=== PATIENT | male | born 1965 | race Caucasian/White ===

== ENCOUNTER 2022-02-11 13:35 | Observation (INO) | payer SELFPAY ==
[2022-02-11] VITALS (39 sets, daily range): BP systolic 107–155; BP diastolic 65–109; PULSE 62–96; RESP 11–20; TEMP 36.3–37.1; O2SAT 92–100; BMI 22.2
--- NOTE | ~2022-02-11 | XR_ITS ---
EXAMINATION: XR chest 1V portable DATE: 02/11/2022 14:16 INDICATION: Chest pain TECHNIQUE: frontal view of the chest was obtained. COMPARISON: None FINDINGS: The lungs are clear with no focal airspace opacities, pulmonary edema, pleural effusion or pneumothor ax. The cardiomediastinal silhouette is normal. Visualized bones and soft tissues are unremarkable. IMPRESSION: 1. No acute cardiopulmonary disease. Reviewed, dictated and finalized at location A.
--- NOTE | ~2022-02-11 | NM_ITS ---
EXAMINATION: NM stress w perf spect multi DATE: 02/12/2022 13:48 INDICATION: Chest pain. TECHNIQUE: Rest images were obtained following intravenous administration of 9.5 mCi Tc99m tetrofosmi n (EndoGastric Solutions). The patient performed an exercise activity. At peak exercise, 27.8 mCi Tc99m tetrofosmin (Myoview) was administered intravenously, and stress images were obtained. Data was reconstructed in to short axis and horizontal and vertical long axis SPECT images. Gated SPECT images were also obtain ed. COMPARISON: Chest CT 02/11/2022 FINDINGS: Sensitivity and specificity in the inferior wall are decreased by relatively high activity below the diaphragm. There is no definite reversible or fixed perfusion abnormality to suggest ischem ia or infarction. There is no segmental wall motion abnormality. Left ventricular ejection fraction measures > 70%. IMPRESSION: 1. No definite ischemia or infarct. 2. Normal left ventricular ejection fraction measuring >70%. Reviewed, dictated and finalized at location A.
--- NOTE | ~2022-02-11 | CT_ITS ---
EXAMINATION: CTA chest PE protocol DATE: 02/11/2022 18:31 INDICATION: CHEST PAIN TECHNIQUE: Computed tomography angiography (CTA) of the chest was performed with 100 mL Omnipaque-350 intravenous contrast timed to evaluate the pulmonary arteries. Coronal maximum intensity projection 3D-reconstructions were created by the technologist. The dose-length product (DLP) was 341.84 mGy-cm. Automated exposure control and iterative reconstruction technique were employed. COMPARISON: None. FINDINGS: Lung parenchyma and airways: Clear. Pleura: Unremarkable. Thoracic inlet, axillae and chest wall: Unremarkable. Thoracic aorta: Mild arch calcification. A sending aortic ectasia up to 4.1 cm. Mediastinum: Normal. Heart and pericardium: Normal. Coronary artery calcifications: Mild. Upper abdomen: No significant finding. Bones: No acute osseous finding. Pulmonary arteries: Study quality: Adequate. No pulmonary emboli detected. IMPRESSION: No CT evidence of acute pulmonary embolus. Reviewed, dictated and finalized at location K.
--- NOTE | 2022-02-11 13:36 | ECG_ITS ---
Measurements Intervals [place] Rate: 75 P: 76 UT: 157 QRS: 71 QRSD: 90 T: 65 QT: 372 QTc: 416 Interpretive Statements SINUS RHYTHM DIFFUSE ST SEGMENT ELEVATION, CONSIDER EARLY REPOLARIZATION [ST ELEVATION WITH NORMALLY INFLECTED T WAVE], PERICARDITIS ABNORMAL ECG NO PREVIOUS ECG AVAILABLE FOR COMPARISON Electronically Signed On 02-11-2022 13:59:54 CDT by Ponce Jimenes M.D.
--- NOTE | 2022-02-11 13:50 | ED.CHESTPAIN ---
HPI - Chest Pain General Chief Complaint: Chest Pain Stated Complaint: Chest pressure Time Seen by Provider: 02/11/22 13:50 Source: patient Limitations: no limitations History of Present Illness HPI narrative: 56 years old white male presented to the ED with chest started at 4 AM tightness, squeezing 8 out of 10,.. 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 He denies any shortness of breath or radiation of pain or having similar symptoms. Patient is adopted, does not take medicine at home, actively tobacco use. He denies any fever, chills, nausea, vomiting or similar symptoms. Related Data Home Medications Medication Instructions Recorded Confirmed No Home Medications 02/11/22 02/11/22 Allergies Allergy/AdvReac Type Severity Reaction Status Date / Time No Known Allergies Allergy Verified 02/11/22 13:43 Review of Systems Review of Systems: All systems reviewed & are unremarkable except as noted in HPI and below PMFSH Past Medical History Medical History Tobacco abuse Surgical History Surgical History No pertinent past surgical history Family History Family History Unknown Family history not known due to adoption Social History Social History Social History: The patient is and has 2 children. 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 He denies any alcohol, marijuana, or illicit drugs. His is the durable power deputy prosecuting attorney for healthcare. Code status full code Smoking packs per day: 1 Smoking cigarettes per day: 20.0 Smoking status: Current every day smoker Alcohol intake: current Substance use: never Living arrangements: with family Occupation/Education: occupation Spiritual care concerns: No Has the Lack of Transportation Kept You From Medical Appointments or From Getting Medications?: No Within the Past 12 Months, Were You Worried Whether Your Food Would Run Out Before You Got Money to Buy More?: Never True What is Your Housing Situation Today?: I Have Housing Are You Worried That in the Next 2 Months, You May Not Have Your Own Housing to Live In?: No Do You Have Trouble Paying Your Heating Or Electricity Bill?: No Do You Have Trouble Paying For Medicines?: No Are You Currently Unemployed and Looking for Work?: No Highest Level of Education Completed: Associate Degree Do You Have Trouble With Childcare or the Care of a Family Member?: No Exam Narrative: General appearance: Well-developed, well-nourished Skin: Normal color Head: Normocephalic, nontraumatic Eyes: Clear conjunctiva ENT: Oropharynx normal, ears normal, nose normal Neck: Supple, nontender Chest and respiratory: Airway patent, no respiratory distress, no accessory muscle use Heart: Regular rate/rhythm Abdomen: Soft, nontender, no organomegaly, quiet bowel sounds Vascular: Normal peripheral pulses, normal capillary refill. Musculoskeletal: Normal range of motion, nontender back Neurologic: Alert and oriented ?3, ACID ADJUSTER is normal as tested, no gross motor deficit Course Consultations Consultation #1: Dr. Mancera came to the emergency room and stated that the EKG did not show STEMI and no cardiac catheterization at this time Time: 14:08 Vital Signs Vital signs: Vital Signs Temperature 37.1 C 02/11/22 13:39 Pulse Rate 75 02/11/22 13:39 Respiratory Rate 20 02/11/22 13:39 Blood Pressure 155/79 H 02/11/22 13:39 Pulse Oxime
[2022-02-11] MEDS: ASPIRIN 81 MG CHEWABLE TABLET 324 MG PO (14:35)
[2022-02-11] MEDS: NITROGLYCERIN SL 0.4 MG TABLET SUBLINGUAL (14:35)
[2022-02-11 14:38] LABS: Basophils Absolute Auto 0.1 K/mm3 (0.0-0.1); Basophils Percent Auto 0.5 % (0.2-1.2); Eosinophils Absolute Auto 0.1 K/mm3 (0-0.3); Eosinophils Percent Auto 0.8 % (0-4.4); Hematocrit 44.3 % (42.0-52.0); Hemoglobin 14.9 g/dL (14.0-18.0); Immature Granulocyte Absolute 0.03 K/mm3 (0.00-0.031); Immature Granulocyte Percent A 0.3 % (0-0.5); Lymphocytes Absolute Auto 0.94 K/mm3 (0.9-3.2); Lymphocytes Percent Auto 9.9 % (18.3-44.2); Mean Corpuscular HGB Conc 33.6 g/dl (32-36); Mean Corpuscular Hemoglobin 33.2 pg (26-34); Mean Corpuscular Volume 98.7 fl (80-100); Mean Platelet Volume 11.2 fl (7.4-10.4); Monocytes Absolute Auto 0.6 K/mm3 (0.1-0.6); Monocytes Percent Auto 6.7 % (2.6-8.5); Neutrophils Absolute Auto 7.8 K/mm3 (1.3-6.7); Neutrophils Percent Auto 81.8 % (45.5-73.1); Platelet Count Result 199 k/mm3 (150-375); Red Blood Count 4.49 M/mm3 (4.6-6.20); Red Cell Distribution Width 12.8 % (11.5-14.5); White Blood Count 9.5 K/mm3 (4.5-10.0)
[2022-02-11 14:50] LABS: Alanine Aminotransferase 32 U/L (6-50); Albumin Level 4.7 g/dL (3.5-5.1); Alkaline Phosphatase 60 U/L (38-126); Anion Gap 13 mmol/L (8-16); Aspartate Amino Transferase 54 U/L (17-59); Bilirubin,Total 0.6 mg/dL (0.2-1.3); Blood Urea Nitrogen 11 mg/dL (9-20); Carbon Dioxide 23 mmol/L (22-30); Chloride 105 mmol/L (98-107); Estimated CRCL calculation 82 ml/min; Estimated Glomerular Filt Rate > 60; Glucose 112 mg/dL (65-110); Lipase 59 U/L (23-300); Sodium 141 mmol/L (137-145)
[2022-02-11 14:51] LABS: INR 1.1; Prothrombin Time 13.4 Seconds (11.1-14.7)
[2022-02-11 14:52] LABS: Partial Thromboplastin Time 29.7 SECONDS (22.3-36.8)
[2022-02-11 14:59] LABS: NT Pro B Type Natriuretic Pept 60 pg/mL (5-100)
[2022-02-11 15:00] LABS: D Dimer 0.37 ug/mL (<0.48)
[2022-02-11 15:02] LABS: Troponin I < 0.012 ng/mL (0.000-0.034)
--- NOTE | 2022-02-11 15:44 | PM.IMHP ---
H&P: HPI History of Present Illness Date/Time: 02/11/22 15:44 Chief Complaint: Chest pain Narrative: This is a 56-year-old male patient who has no prior history of any medical problems. The patient is a electric truck driver and heavy smoker. The patient stated that he was resting this morning at 4:00 a.m. and started to have some tightness in his chest that was squeezing 8/10. The patient stated that he was not short of breath and did not radiate down his arms and he did not become diaphoretic are nauseated. The patient started driving his truck in the pain got worse and was 5/10. The patient denied any fever chills or any cough. The patient then fold his truck over at a truck stop and called the ambulance. Initially a STEMI was called and cardiology came to the emergency room to see the patient. The patient stated that he took goodies that her equivalent to aspirin. The patient was also given nitro and aspirin in the emergency room. EKG was read as sinus rhythm diffuse ST segment elevation consider early repolarization, ST elevation with normally inflicted T-waves, pericarditis, abnormal EKG. First troponin is negative. COVID is negative. Chest x-ray was read as no acute cardiopulmonary disease. D-dimer was negative. The patient is being admitted for observation status on the date of service of 02/11/2022. Review of Systems Review of Systems: See HPI All systems reviewed & are unremarkable except as noted in HPI and below Constitutional: Constitutional: Reports as per HPI and Reports no additional constitutional complaints Eyes: Eyes: Reports as per HPI and Reports no additional eye complaints ENT: Reports system reviewed and no additional complaints, except as documented and Reports Normal hearing present Cardiovascular: Cardiovascular: Reports no additional cardiovascular complaints Respiratory: Respiratory: Reports no additional respiratory complaints and Reports no additional respiratory complaints Gastrointestinal: Gastrointestinal: Reports as per HPI and Reports no additional gastrointestinal complaints Musculoskeletal: Musculoskeletal: Reports no additional musculoskeletal complaints Integumentary/Breasts: Skin/Breast: Reports system reviewed and no additional complaints, except as docu and Reports as per HPI Neurologic: Reports system reviewed and no additional complaints, except as documented, Reports as per HPI and Reports Normal hearing present Psychiatric: Psychiatric: Reports no additional psychiatric complaints and Reports as per HPI Endocrine: Endocrine: Reports no additional endocrine complaints Hematologic/Lymphatic: Hematologic/Lymphatic: Reports no additional hematologic/lymphatic complaints Allergic/Immunologic: Allergic/Immunologic: Reports no additional allergic/immunologic complaints PMFSH Past Medical History Medical History (Updated 02/11/22 @ 18:14 by Lorrie Spangler NP) Tobacco abuse Surgical History Surgical History (Updated 02/11/22 @ 17:29 by Lorrie Spangler NP) No pertinent past surgical history Family History Family History (Updated 02/11/22 @ 17:30 by Lorrie Spangler NP) Unknown Family history not known due to adoption Social History Social History (Updated 02/11/22 @ 17:30 by Lorrie Spangler NP) Social History: The patient is and has 2 children. 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 He denies any alcohol, marijuana, or illicit drugs. His is the durable power neurology director for healthcare. Code status full code Smoking status: Current every day smoker Substance use: never Living arrangements: with family Occupation/Education: occupation Meds Home Medications and Allergies Allergies Allergy/AdvReac Type Severity Reaction Status Date / Time No Known Allergies Allergy Verified 02/11/22 13:43 Vital Signs Vital Signs - 24 hr 02/11/22 13:39 02/11/22 13:57 02/11/22 13:50 Temperature 37.1 C Pulse Rate 75 85 96 Respiratory Rate
[2022-02-11 17:05] LABS: SARS-CoV-2 RNA PCR Negative
[2022-02-11 17:51] LABS: Troponin I < 0.012 ng/mL (0.000-0.034)
--- NOTE | 2022-02-11 20:07 | ADMGEN ---
This patient, Gustavo Rust, was admitted to IMU Room 206-02 at 2006. Patient/family oriented to hospital policies and general routines including ID bracelet, bed and alarms, visiting hours, pain management, procedures, bathroom and other care routines, personal items, smoking policy, room service/diet, and visiting hours. Information on how to activate the Rapid Response Team has been discussed. Patient/Family are encouraged to report perceived risks to care and to ask questions if they do not understand what they are told or what they should do.
[2022-02-11 20:58] LABS: Troponin I < 0.012 ng/mL (0.000-0.034)
[2022-02-12] VITALS (7 sets, daily range): BP systolic 94–113; BP diastolic 61–73; PULSE 64–76; RESP 16–20; TEMP 36.6–36.7; O2SAT 96–100
--- NOTE | 2022-02-12 | ECHO_ITS ---
Patient Info Name: Gustavo Rust Age: 56 years : 1965 Gender: Male Ht: 69 in Wt: 169 lbs BSA: 1.94 m2 HR: 66 bpm BP: 94 / 61 mmHg Heart Rhythm: Sinus Rhythm Technical Quality: Fair Exam Date: 02/12/2022 10:33 AM Exam Location: [facility] Pulmonary Exam Room: [facility] Patient Status: Inpatient Admit Date: 02/11/2022 Staff Ordering Physician: Lorrie Spangler NP Ventilated Rib Fitter: Eunice Mejia RDCS Attending Provider: Timothy hCen MD Referring Physician: Crys MCGUIRE; Exam Type: CA echo doppler color flow Study Info Indications - chest pain Complete two-dimensional, color flow and Doppler transthoracic echocardiogram is performed. Summary 1. Complete two-dimensional, color flow and Doppler transthoracic echocardiogram is performed. 2. Left ventricular chamber dimension is normal. 3. Left ventricular systolic function is normal, estimated at 55-60%. 4. There is no increased left ventricular wall thickness. 5. The left ventricular diastolic function is normal. 6. Right ventricular chamber dimension is mildly enlarged. 7. Right atrial chamber dimension is mildly enlarged. 8. There is mild tricuspid valve regurgitation. 9. There is mild pulmonic regurgitation. Left Ventricle Left ventricular chamber dimension is normal. Left ventricular systolic function is normal, estimated at 55-60%. There is no increased left ventricular wall thickness. The left ventricular diastolic function is normal. Right Ventricle Right ventricular chamber dimension is mildly enlarged. Right ventricular systolic function is normal. Left Atria Left atrial chamber dimension is normal. Right Atria Right atrial chamber dimension is mildly enlarged. Atrial Septum Intact interatrial septum visualized by color flow imaging. Aortic Valve The aortic valve is trileaflet. There is mild aortic valve sclerosis. There is no aortic valve stenosis. There is trace aortic valve regurgitation. Pulmonic Valve The pulmonic valve is normal. There is no pulmonic valve stenosis. There is mild pulmonic regurgitation. Mitral Valve The mitral valve has thickened leaflets. There is no mitral valve stenosis. There is trace mitral valve regurgitation. Tricuspid Valve The tricuspid valve leaflets are normal. There is no significant tricuspid valve stenosis. There is mild tricuspid valve regurgitation. No pulmonary hypertension, estimated pulmonary arterial systolic pressure is 33 mmHg. Pericardium/Pleural The pericardium appears normal. Inferior Vena Cava Normal inferior vena cava with >50% collapse upon inspiration consistent with normal right atrial pressure, 10 mmHg. Aorta The aortic root size at the sinus of Valsalva is normal. Left Ventricular Outflow Tract Name Value Normal LVOT 2D LVOT Diameter 2.0 cm LVOT Doppler LVOT Peak Gradient 7 mmHg LVOT Mean Gradient 4 mmHg LVOT VTI 26 cm LVOT VTI/AV VTI Ratio 1.2 LVOT Stroke Volume 78 m
--- NOTE | 2022-02-12 | EST_ITS ---
Patient Info Name: Gustavo Rust Age: 56 years : 1965 Gender: Male Ht: 69 in Wt: 169 lbs BSA: 1.94 m2 HR: 66 bpm BP: 120 / 73 mmHg Heart Rhythm: Sinus Rhythm Exam Date: 02/12/2022 12:38 PM Exam Location: [facility] Stress Patient Status: Inpatient Admit Date: 02/11/2022 Staff Ordering Physician: Lorrie Spangler NP Attending Provider: Timothy Chen MD Exercise Technologist: Camelia Howell CT Nurse: SELMA LIN Exam Type: CA stress test treadmill w NM Study Info Indications R07.1 - Chest pain on breathing A nuclear stress test was performed. Summary 1. Please correlate with nuclear medicine images, reported separately. 2. No abnormal ST-T wave changes with exercise. Protocol: [facility] ECG Details Stage: REST Duration (min): 1 min : 8 sec Speed (mph): 0.0 Grade (%): 0 HR (bpm): 66 SBP (mmHg): 120 DBP (mmHg): 73 METS: --- Stage: REST Duration (min): 7 min : 51 sec Speed (mph): 0.0 Grade (%): 0 HR (bpm): 83 SBP (mmHg): 120 DBP (mmHg): 73 METS: --- Stage: STAGE 1 Duration (min): 1 min : 0 sec Speed (mph): 1.7 Grade (%): 10 HR (bpm): 93 SBP (mmHg): 120 DBP (mmHg): 73 METS: --- Stage: STAGE 1 Duration (min): 2 min : 0 sec Speed (mph): 1.7 Grade (%): 10 HR (bpm): 102 SBP (mmHg): 120 DBP (mmHg): 73 METS: --- Stage: STAGE 1 Duration (min): 3 min : 0 sec Speed (mph): 1.7 Grade (%): 10 HR (bpm): 104 SBP (mmHg): 133 DBP (mmHg): 79 METS: --- Stage: STAGE 2 Duration (min): 1 min : 0 sec Speed (mph): 2.5 Grade (%): 12 HR (bpm): 108 SBP (mmHg): 133 DBP (mmHg): 79 METS: --- Stage: STAGE 2 Duration (min): 2 min : 0 sec Speed (mph): 2.5 Grade (%): 12 HR (bpm): 113 SBP (mmHg): 173 DBP (mmHg): 67 METS: --- Stage: STAGE 2 Duration (min): 3 min : 0 sec Speed (mph): 2.5 Grade (%): 12 HR (bpm): 110 SBP (mmHg): 173 DBP (mmHg): 67 METS: --- Stage: STAGE 3 Duration (min): 1 min : 0 sec Speed (mph): 3.4 Grade (%): 14 HR (bpm): 124 SBP (mmHg): 175 DBP (mmHg): 67 METS: --- Stage: STAGE 3 Duration (min): 2 min : 0 sec Speed (mph): 3.4 Grade (%): 14 HR (bpm): 124 SBP (mmHg): 175 DBP (mmHg): 67 METS: --- Stage: STAGE 3 Duration (min): 3 min : 0 sec Speed (mph): 3.4 Grade (%): 14 HR (bpm): 131 SBP (mmHg): 146 DBP (mmHg): 63 METS: --- Stage: STAGE 4 Duration (min): 1 min : 0 sec Speed (mph): 4.2 Grade (%): 16 HR (bpm): 139 SBP (mmHg): 146 DBP (mmHg): 63 METS: --- Stage: STAGE 4 Duration (min): 2 min : 0 sec Speed (mph): 4.2 Grade (%): 16 HR (bpm): 147 SBP (mmHg): 126 DBP (mmHg): 45 METS: --- Stage: STAGE
[2022-02-12 05:13] LABS: Basophils Absolute Auto 0.1 K/mm3 (0.0-0.1); Basophils Percent Auto 0.9 % (0.2-1.2); Eosinophils Absolute Auto 0.3 K/mm3 (0-0.3); Eosinophils Percent Auto 3.6 % (0-4.4); Hemoglobin 12.9 g/dL (14.0-18.0); Immature Granulocyte Absolute 0.01 K/mm3 (0.00-0.031); Immature Granulocyte Percent A 0.1 % (0-0.5); Lymphocytes Percent Auto 27.3 % (18.3-44.2); Mean Corpuscular HGB Conc 33.9 g/dl (32-36); Mean Corpuscular Hemoglobin 32.8 pg (26-34); Mean Corpuscular Volume 96.7 fl (80-100); Mean Platelet Volume 11.1 fl (7.4-10.4); Monocytes Absolute Auto 0.7 K/mm3 (0.1-0.6); Monocytes Percent Auto 9.6 % (2.6-8.5); Neutrophils Absolute Auto 4.1 K/mm3 (1.3-6.7); Neutrophils Percent Auto 58.5 % (45.5-73.1); Platelet Count Result 169 k/mm3 (150-375); Red Blood Count 3.93 M/mm3 (4.6-6.20); Red Cell Distribution Width 12.5 % (11.5-14.5)
[2022-02-12 05:33] LABS: Alanine Aminotransferase 25 U/L (6-50); Albumin Level 3.9 g/dL (3.5-5.1); Alkaline Phosphatase 48 U/L (38-126); Anion Gap 6 mmol/L (8-16); Aspartate Amino Transferase 27 U/L (17-59); Bilirubin,Total 0.8 mg/dL (0.2-1.3); Blood Urea Nitrogen 11 mg/dL (9-20); Calcium 8.2 mg/dL (8.4-10.2); Carbon Dioxide 26 mmol/L (22-30); Chloride 106 mmol/L (98-107); Estimated CRCL calculation 74 ml/min; Estimated Glomerular Filt Rate > 60; Glucose 101 mg/dL (65-110); Magnesium 1.9 mg/dL (1.6-2.3); Potassium 3.7 mmol/L (3.4-5.0); Sodium 138 mmol/L (137-145)
--- NOTE | 2022-02-12 06:00 | ECG_ITS ---
Measurements Intervals [place] Rate: 67 P: 67 ID: [id number] QRS: 41 QRSD: 89 T: 59 QT: 386 QTc: 410 Interpretive Statements SINUS RHYTHM DIFFUSE ST SEGMENT ELEVATION, CONSIDER EARLY REPOLARIZATION VERSUS PERICARDITIS ABNORMAL ECG COMPARED TO ECG 02/11/2022 13:42:43 NO SIGNIFICANT CHANGES Electronically Signed On 02-12-2022 14:57:17 CDT by Ponce Jimenes M.D.
--- NOTE | 2022-02-12 08:56 | PM.CNCAR ---
Assessment and Plan Assessment and plan (1) Chest pain: Code(s): R07.9 - Chest pain, unspecified Status: Acute Assessment and Plan: This is 56-year-old patient who presents here with central chest heaviness tightness that gets worse with taking deep breath, has diffuse ST elevations. Negative troponins and negative D-dimer and no evidence of pulmonary embolism. Suspicious for pericarditis however he is a smoker for long time and concern about underlying CAD. Arrange for exercise nuclear test. If the test comes negative for ischemia then we can start patient on colchicine for total duration 3 months. Arrange echocardiogram. (2) Tobacco abuse: Code(s): Z72.0 - Tobacco use Status: Acute Assessment and Plan: Counseled patient regarding tobacco cessation. Patient already has decreased air entry bilaterally in both lungs as well as wheezing concerning for COPD. 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 when he started to have central chest pressure aggravated by taking deep breath. It was continuous and then faded away in couple hours and then started to happen again and lasts for about a couple hours and at that time he decided to come here to the emergency room. He denies palpitations, dizziness, syncope, orthopnea paroxysmal nocturnal dyspnea, lower extremity edema. He is adopted and does not know his family history. Alcohol drinking occasionally. Troponins x3 negative, D-dimer negative, normal electrolytes, CTA thorax ruled out pulmonary embolism but shows ectasia in the ascending aorta measuring 4.1 cm, EKG reviewed and analyzed myself shows sinus rhythm with diffuse ST elevations that could represent early repolarization or pericarditis. Review of Systems Constitutional: Constitutional: Denies chills, Denies fever(s) and Denies poor appetite Eyes: Eyes: Denies eye discharge, Denies loss of vision, Denies eye pain and Denies photophobia ENT: Denies dizziness, Denies epistaxis, Denies nasal congestion and Denies sore throat Cardiovascular: Cardiovascular: Reports chest pain, Denies syncope, Denies pedal edema, Denies leg edema, Denies palpitations, Denies dyspnea, Denies dyspnea on exertion and Denies orthopnea Respiratory: Respiratory: Reports cough, Denies dyspnea, Denies dyspnea on exertion and Denies wheezing Gastrointestinal: Gastrointestinal: Denies abdominal pain, Denies diarrhea, Denies nausea and Denies vomiting Genitourinary: Genitourinary: Denies hematuria, Denies genital lesions and Denies dysuria Musculoskeletal: Musculoskeletal: Denies arthralgias, Denies joint swelling and Denies numbness Integumentary/Breasts: Skin/Breast: Denies pruritus and Denies rash Neurologic: Denies dizziness, Denies syncope, Denies loss of vision and Denies numbness Psychiatric: Psychiatric: Denies anxiety and Denies depression Endocrine: Endocrine: Denies cold intolerance, Denies heat intolerance and Denies palpitations Hematologic/Lymphatic: Hematologic/Lymphatic: Denies easy bleeding and Denies easy bruising Allergic/Immunologic: Allergic/Immunologic: Denies urticaria and Denies wheezing PMFSH Past Medical History Medical History Tobacco abuse Surgical History Surgical History No pertinent past surgical history Family History Family History Unknown Family history not known due to adoption Social History Social History Social History: The patient is an
--- NOTE | 2022-02-12 11:46 | PM.IMPN ---
Progress Note: A&P Assessment and Plan (1) Chest pain: Code(s): R07.9 - Chest pain, unspecified Status: Acute Assessment and Plan: -patient's D-dimer was negative however the patient is a smoker and a truck terminal manager. The patient stated he still has some discomfort when he takes a deep breath. Even though his D-dimer was negative I did order CT a pulmonary if he is high risk. -patient's troponin was found to be negative. -patient's chest x-ray was found to be negative. -an echo has been ordered for tomorrow. -stress test has been ordered for tomorrow. -continue to trend cardiac enzymes. - other possibility is pericarditis as patient does have some ST changes on EKG. If stress test negative will start on colchicine And NSAIDs. Subjective Date/time seen: 02/12/22 11:46 Mild chest discomfort this morning Exam Const: General: cooperative, healthy appearing, comfortable, no acute distress, well developed, alert, awake, Physically active, average body habitus and well nourished Nutritional Appearance: average body habitus and well nourished Orientation/consciousness: oriented to person, oriented to place, oriented to time and patient oriented x3 Limitations: no limitations HENMT: Head: normal to inspection, No palpable skull fracture present, normocephalic and atraumatic Ears: hearing grossly normal bilaterally, external ears normal and TM's normal bilaterally Face/Nose/Sinus: Normal external nose present, Normal nares present and No nasal polyps present Mouth: Yes Normal oral and palatal mucosa present Throat: posterior oropharynx normal Eyes: General: appearance normal, both eyes and all related structures Alignment and Position: alignment normal Periorbital: periorbital findings normal Eyelids: eyelids normal Conjunctivae: conjunctivae normal Sclera: sclerae normal Cornea: corneas normal Pupils: Equal, round and reactive pupils present and Pupil accommodation reflex normal EOM: EOMs intact bilaterally Neck: Neck: normal visual inspection, full ROM, no lymphadenopathy, trachea midline and supple Thyroid: thyroid normal Carotids: normal carotid upstroke Lymphatic: no lymphadenopathy noted Chest: Chest palpation & inspection: normal inspection of the chest Resp: Effort & Inspection: normal respiratory effort Auscultation: clear to auscultation bilaterally Percussion: percussion normal Cardio: Palpation: normal PMI Rate: regular rate Rhythm: regular rhythm Heart sounds: S1 normal heart sound present and S2 normal heart sound present Peripheral pulses: Peripheral pulses 2+ throughout GI: Inspection: normal to inspection Auscultation: normal bowel sounds Rectal Exam: deferred : General: Yes no CVA tenderness Back/Spine/Pelvis: Back: no CVA tenderness Cervical Spine: cervical ROM normal Thoracic/Lumbar Spine: thoracic and lumbar spine normal to inspection Pelvis: no pain with anterior-posterior compression Skin: General skin exam: normal color Lesions: no lesions Rashes: no rashes Trauma: no lacerations or abrasions Wounds: no wounds Hair: normal Nails: normal Neuro: General: oriented to person, oriented to place, oriented to time and patient oriented x3 Cranial nerves: Yes Equal, round and reactive pupils present and Yes Normal hearing present Cognition (Neuro): normal cognition Speech: normal speech Gait exam (Neuro): Normal gait present Motor exam (neuro): 5/5 motor strength present throughout Sensory Exam: normal sensation Extrem: General: normal to inspection Right upper extremity: normal to inspection and shoulder/upper arm Left upper extremity: normal to inspection and shoulder/upper arm Right lower extremity: normal to inspection Left lower extremity: normal to inspection Psych: Appearance: grossly normal Mental Status: mental status grossly normal Speech and movement: Normal speech and movement present Affect: normal affect Attitude: cooperative Thought process: Normal thou
[2022-02-12] MEDS: PANTOPRAZOLE SODIUM IV 40 MG VIAL IV PUSH (16:42)
[2022-02-12] MEDS: ASPIRIN 81 MG CHEWABLE TABLET PO (16:43)
--- NOTE | 2022-02-12 18:15 | PCCCNOTE ---
CC called about transportation to the truck center where patients Semi truck is parked. patient does not have any money. CC provided patient with cab voucher.
--- NOTE | 2022-02-12 18:33 | PM.DS ---
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 The patient stated he still has some discomfort when he takes a deep breath. Even though his D-dimer was negative I did order CT a pulmonary if he is high risk. -patient's troponin was found to be negative. -patient's chest x-ray was found to be negative. -an echo has been ordered for tomorrow. -stress test has been ordered for tomorrow. -continue to trend cardiac enzymes. - other possibility is pericarditis as patient does have some ST changes on EKG. If stress test negative will start on colchicine And NSAIDs. DS: Summary Hospital Course Hospital Course: Patient is a 56 year L Dick chest pain. Cardiology was consulted he did have some ST changes troponins were negative. Stress test was also negative and he will be started on treatment for pericarditis. Patient was sent home on aspirin and also colchicine. Time Spent with Patient Time attestation: Total time spent providing and/or coordinating discharge services: Exam Const: General: cooperative, healthy appearing, comfortable, no acute distress, well developed, alert, awake, Physically active, average body habitus and well nourished Nutritional Appearance: average body habitus and well nourished Orientation/consciousness: oriented to person, oriented to place, oriented to time and patient oriented x3 Limitations: no limitations HENMT: Head: normal to inspection, No palpable skull fracture present, normocephalic and atraumatic Ears: hearing grossly normal bilaterally, external ears normal and TM's normal bilaterally Face/Nose/Sinus: Normal external nose present, Normal nares present and No nasal polyps present Mouth: Yes Normal oral and palatal mucosa present Throat: posterior oropharynx normal Eyes: General: appearance normal, both eyes and all related structures Alignment and Position: alignment normal Periorbital: periorbital findings normal Eyelids: eyelids normal Conjunctivae: conjunctivae normal Sclera: sclerae normal Cornea: corneas normal Pupils: Equal, round and reactive pupils present and Pupil accommodation reflex normal EOM: EOMs intact bilaterally Neck: Neck: normal visual inspection, full ROM, no lymphadenopathy, trachea midline and supple Thyroid: thyroid normal Carotids: normal carotid upstroke Lymphatic: no lymphadenopathy noted Chest: Chest palpation & inspection: normal inspection of the chest Resp: Effort & Inspection: normal respiratory effort Auscultation: clear to auscultation bilaterally Percussion: percussion normal Cardio: Palpation: normal PMI Rate: regular rate Rhythm: regular rhythm Heart sounds: S1 normal heart sound present and S2 normal heart sound present Peripheral pulses: Peripheral pulses 2+ throughout GI: Inspection: normal to inspection Auscultation: normal bowel sounds Rectal Exam: deferred : General: Yes no CVA tenderness Back/Spine/Pelvis: Back: no CVA tenderness Cervical Spine: cervical ROM normal Thoracic/Lumbar Spine: thoracic and lumbar spine normal to inspection Pelvis: no pain with anterior-posterior compression Skin: General skin exam: normal color Lesions: no lesions Rashes: no rashes Trauma: no lacerations or abrasions Wounds: no wounds Hair: normal Nails: normal Neuro: General: oriented to person, oriented to place, oriented to time and patient oriented x3 Cranial nerves: Yes Equal, round and reactive pupils present and Yes Normal hearing present Cognition (Neuro): normal cognition Speech: normal speech Gait exam (Neuro): Normal gait present Motor exam (neuro): 5/5 motor strength present throughout Sensory Exam: normal sensation Extrem: General: normal to inspection Rig
== END 2022-02-12 18:46 | disposition home or self-care (01) ==
LOC: ANHED 14:39 → ANHIMU 18:39
PROVIDERS: Nurse Practitioner; Admitting Provider Chiropractor; Emergency Provider Emergency Medicine; Visit Provider Chiropractor
DX: R07.9 Chest pain, unspecified (principal); F17.210 Nicotine dependence, cigarettes, uncomplicated; Z20.822 Contact with and (suspected) exposure to COVID-19
CPT/HCPCS: 36415; 71045; 71275; 78452; 80053; 83690; 83735; 83880; 84443; 84484; 85025; 85380; 85610; 85730; 93005; 93017; 93306; 96374; 99285; A9270; A9502; C9113; C9803; G0378; G0379; Q9967; U0003; U0005